=== PATIENT | male | born 1960 | race Caucasian/White ===

== ENCOUNTER 2017-04-07 18:47 | Emergency (ER) | payer MEDICAID ==
[~2017-04-07] VITALS: Ht 177.8 cm; Wt 107.0 kg
[~2017-04-07 18:47] MED LIST: LISI20TA11 PO; NAPR-260 PO
[2017-04-07 18:52] VITALS: Ht 177.8 cm; Wt 107.0 kg
[2017-04-07] MEDS ORDERED: BENAZEPRIL 20 MG TAB PO ONE (20:30)
[2017-04-07] MEDS ORDERED: BENA40TA41 PO (20:31)
--- NOTE | 2017-04-07 20:31 | ERD ---
ER Documentation Chief Complaint Date/Time DATE: 04/07/17 TIME: 20:29 Chief Complaint hypertension today, does not take htn meds HPI This is a 56-year-old male who presents to the emergency room for evaluation of hypertension. The patient states that he normally takes benazepril 40 mg before he goes to sleep at night, and states he has run out of his medication. He is on his medication in 3 days. He denies any headache, chest pain, shortness of breath, palpitations, difficulty urinating or abdominal pain associated with this. ROS All systems reviewed and are negative except as per history of present illness. Medications Home Meds Active Scripts Lisinopril* (Lisinopril*) 20 Mg Tablet, 20 MG PO DAILY, #30 TAB 2 Refills Prov:LUCY ARAIZA PA-C 10/08/16 Naproxen* (Naprosyn*) 500 Mg Tablet, 500 MG PO BID Y for PAIN AND/OR INFLAMMATION, #30 TAB Prov:LUCY ARAIZA PA-C 10/08/16 PMhx/Soc Hx Alcohol Use: No Hx Substance Use: No Hx Tobacco Use: No Physical Exam Vitals Vital Signs Date Time Temp Pulse Resp B/P Pulse Ox O2 Delivery O2 Flow Rate FiO2 04/07/17 20:15 160/98 04/07/17 20:15 77 20 160/110 96 Room Air 04/07/17 19:41 89 20 186/106 94 Room Air 04/07/17 18:52 97.6 84 20 197/103 97 Physical Exam INITIAL VITAL SIGNS: Reviewed by me GENERAL: The patient is well developed and appropriate for usual state of health in no apparent distress HEENT: Pupils equal, round, and reactive to light. EOMI. There is no scleral icterus. NECK: C-spine is soft and supple, there is no meningismus. There is no cervical lymphadenopathy. LUNGS: Clear to auscultation bilaterally. There are no rales, wheezes or rhonchi. HEART: Regular rate and rhythm, no murmurs, clicks, rubs or gallops. ABDOMEN: Soft, non-tender, non-distended. There are bowel sounds in all four quadrants. No rebound or guarding. EXTREMITIES: There is no peripheral cyanosis or edema. No focal swelling or erythema. NEUROLOGICAL: The patient moves all four extremities with 5/5 strength. Cranial nerves II - XII are intact. Normal gait. Alert and oriented SKIN: There is no apparent rash or petechiae. HEME/LYMPHATIC: There is no evidence of excessive bruising or lymphedema. PSYCHIATRIC: The patient does not appear anxious or depressed. Results 24 hrs Current Medications Medications (Trade) Dose Ordered Sig/Irley Route PRN Reason Start Time Stop Time Status Last Admin Dose Admin Benazepril HCl (Lotensin) 40 mg ONCE ONCE PO 04/07/17 20:30 04/07/17 20:31 Procedures/MDM This [age]-year-old male presents to the emergency room for asymptomatic hypertension. He normally takes benazepril 40 mg nightly. This patient did have a blood pressure of 160/104 here in the emergency room. He has no signs of endorgan damage and is not complaining of any pain or blurred vision or headache or nausea or vomiting or chest pain. He was given benazepril in the emergency room and will be discharged home with a prescription for benazepril Departure Diagnosis: Primary Impression: Hypertension Additional Impressions: Medication refill Asymptomatic hypertension Condition: Stable LATONIA LO DO April 07, 2017 20:31
--- NOTE | 2017-04-07 21:20 | RADRPT ---
PROCEDURE: CT brain without contrast CLINICAL INDICATION: Headaches TECHNIQUE: A CT of the brain was performed utilizing axial sections from the skull base through th e vertex without contrast. Sagittal and coronal images were also reformatted. The exam CTDIvol = 42. 43 mGy and DLP = 720.23 mGy-cm. COMPARISON: CT 10/08/2016 FINDINGS: No acute intracranial hemorrhage is identified. There is no mass effect or midline shift. No extra -axial fluid collection is seen. The ventricles and sulci are within normal limits for size and con figuration. Minimal low attenuation of the cerebral white matter is unchanged. [place]-white differen tiation is preserved. The osseous structures are unremarkable for acute abnormality, old left medial orbital wall blowout fracture changes are again noted. The mastoid air cells and visualized paranasal sinuses are clear. RPTAT:HJJR IMPRESSION: 1. No evidence of acute intracranial abnormality, mass effect or interval change from 10/08/2016. 2. Minimal cerebral white matter disease is stable compared to the prior study. 3. Old left medial orbital wall blowout fracture is again noted. Physician [place] Date Time Electronically viewed and signed by Physician [place] on 04/07/2017 21:20 JR/
[2017-04-07] MEDS ORDERED: ACET325T33 PO (22:02)
[2017-04-07 22:04] VITALS: BP 159/104; PULSE 90; RESP 18; TEMP 98.3
== END 2017-04-07 22:05 | disposition home or self-care (01) ==
LOC: E/R 18:47
DX: I10 Essential (primary) hypertension (principal); R51 Headache; Z76.0 Encounter for issue of repeat prescription
CPT/HCPCS: 70450; Z7502; Z7610